=== PATIENT | female | born 1960 ===

== ENCOUNTER 2024-03-11 15:12 | Day surgery (SDC) | payer SELFPAY ==
[2024-03-11] VITALS (16 sets, daily range): BP systolic 106–143; BP diastolic 56–78; BMI 38.9
== END 2024-03-11 23:47 | disposition short-term general hospital (02) ==
LOC: SDS 15:12
PROVIDERS: ATTENDING PHYSICIAN Internal Medicine Gastroenterology
DX: K80.50 Calculus of bile duct without cholangitis or cholecystitis without obstruction (principal); R74.8 Abnormal levels of other serum enzymes; K83.8 Other specified diseases of biliary tract; R93.2 Abnormal findings on diagnostic imaging of liver and biliary tract
CPT/HCPCS: 43277; 43264; 74330; 76000; C1726; C1769